=== PATIENT | male | born 1980 | race Caucasian/White ===

== ENCOUNTER 2024-02-07 23:11 | Emergency (ER) | payer OTHER ==
[~2024-02-07] VITALS: Ht 182.9 cm; Wt 87.0 kg
[2024-02-07 23:36] VITALS: BP 115/74; PULSE 87; RESP 18; TEMP 98.5; O2SAT 97
[2024-02-08] MEDS: TETANUS, DIPHTHERIA, PERTUSSIS VAC/PF 0.5ML (>10YR OLD) IM ONE (01:47)
[2024-02-08] MEDS ORDERED: AMOX1TAB16 MT (01:57)
== END 2024-02-08 03:20 | disposition home or self-care (01) ==
LOC: ER 23:11
DX: S51.811A Laceration without foreign body of right forearm, initial encounter (principal); S61.011A Laceration without foreign body of right thumb without damage to nail, initial encounter; Z98.890 Other specified postprocedural states; W54.0XXA Bitten by dog, initial encounter; Y93.89 Activity, other specified; Y92.89 Other specified places as the place of occurrence of the external cause; Y99.8 Other external cause status
CPT/HCPCS: 90471; 90715; 99283